=== PATIENT | male | born 1985 | race Caucasian/White ===

== ENCOUNTER 2019-04-30 12:51 | Outpatient (CLI) | payer BC | END 2019-04-30 13:04 | disposition home or self-care (01) | LOC: SLEEP 12:51 | PROVIDERS: ATTEND Nurse Practitioner Family | DX: G47.10 Hypersomnia, unspecified (principal); R53.83 Other fatigue; M25.511 Pain in right shoulder; E78.2 Mixed hyperlipidemia; D58.2 Other hemoglobinopathies; R06.83 Snoring ==